=== PATIENT | male | born 1945 | race Caucasian/White ===

== ENCOUNTER → 2018-10-22 | Outpatient (CLI) | payer OTHER | LOC: CAT 12:57 | DX: Z13.6 Encounter for screening for cardiovascular disorders (principal); E78.00 Pure hypercholesterolemia, unspecified; I25.10 Atherosclerotic heart disease of native coronary artery without angina pectoris ==

== ENCOUNTER 2018-11-08 06:52 | Inpatient (IN) | payer OTHER ==
[~2018-11-08] VITALS: Ht 172.7 cm; Wt 113.4 kg
[2018-11-08 07:40] VITALS: BP 130/91
--- NOTE | 2018-11-08 08:49 | NUR ---
PT HAVING LONG PAUSES ON TELEMETRY. EKG COMPLETED. MD GAYLE AND MD CHO BOTH AWARE. PT DENIES COMPLAINTS, RECOVERING EXPECTED FROM SEDATION. UPDATED ON POC, WILL CONTINUE TO MONITOR.
[2018-11-08] MEDS ORDERED: LIPITOR10 MG PO (09:02)
[2018-11-08] MEDS ORDERED: EDARBYCLOR 40-1 EAC1 PO (09:03)
[2018-11-08] MEDS ORDERED: CHLORTHALIDONE25 MG PO (09:04)
[2018-11-08] MEDS ORDERED: SYNTHROID175 MCG PO (09:04)
[2018-11-08] MEDS ORDERED: ZETIA10 MG PO (09:04)
[2018-11-08] MEDS ORDERED: METFORMIN HCL500 MG PO (09:05)
[2018-11-08] MEDS ORDERED: ACIPHEX 20 MG T20 MG PO (09:06)
[2018-11-08] MEDS ORDERED: LOVAZA1000 MG PO (09:06)
[2018-11-08] MEDS ORDERED: XARELTO20 MG PO (09:07)
[2018-11-08] MEDS ORDERED: MICARDIS 20MG T20 M1 PO (09:07)
[2018-11-08] MEDS ORDERED: FLOMAX0.4 MG PO (09:07)
--- NOTE | 2018-11-08 09:07 | TEE ---
[facility] [address] [place] [address] TRANSESOPHAGEAL ECHOCARDIOGRAM Name: CRISTEL MAYNARD Cam Room [facility] [id number] Admission: 11/08/18 Attend Phys: Zane Cavazos, Discharge: Date of : 47 Report #: [id number] THIS REPORT FOR: //name// APPROVED REPORT Study performed: 11/08/2018 08:00:18 EXAM: Transesophageal Echocardiogram with Doppler and cardioversion Patient Location: Out-Patient Room #: 9 Status: routine BSA: 2.22 HR: 76 bpm BP: 130/91 mmHg Rhythm: Atrial Fibrillation Other Information Study Quality: Good Indications Atrial Fibrillation Echo Enhancing Agent Indication: Rule out Shunt Agent(s) / Amount(s) Used: Agitated Saline 10 cc Procedure After obtaining informed consent, patient underwent transesophageal echo in the [employer] [facility] [employer]. Type of Sedation : Conscious Sedation Sedation was administered by Nurse. Sedation was achieved intravenously with: Versed (4 mg) Fentanyl (100 mcg) Transesophageal probe was inserted and advanced into esophagus without difficulty by Zane Cavazos MD. Echo enhancement indication: R/O Septal defect. Echo enhancement agent administered: Agitated Saline The JOSEPH was performed without complications. Synchronized Cardioversion acheived with 100 Joules after 1 attempt(s). Rhythm following Synchronized Cardioversion: Sinus Bradycardia Throughout the procedure, the blood pressure, pulse oximetry, cardiac rhythm, and rate were monitored. The patient tolerated the procedure without adverse effects. Recovery [facility] [address] [place] [address] TRANSESOPHAGEAL ECHOCARDIOGRAM Name: CRISTEL MAYNARD Room #[facility]#: [id number] Admission: 11/08/18 Attend Phys: Zane Cavazos, Discharge: Date of : 47 Report #: [id number] from conscious sedation was uneventful and vital signs were stable. Left Ventricle The left ventricle is normal size. Mild concentric left ventricular hypertrophy. The left ventricular systolic function is normal. The left ventricular ejection fraction is within the normal range. LVEF is 50-55%. Right Ventricle The right ventricle is normal size. The right ventricular systolic function is normal. Atria Left atrium is dilated. No thrombus is visualized in the left atrium or appendage. No shunting by contrast bubble injection Right atrium is dilated. Aortic Valve The aortic valve is normal in structure. No aortic regurgitation is present. There is no aortic valvular stenosis. Mitral Valve The mitral valve is normal in structure. Mild mitral regurgitation. No evidence of mitral valve stenosis. Tricuspid Valve The tricuspid valve is normal in structure. There is no tricuspid valve regurgitation noted. Pulmonic Valve The pulmonary valve is normal in structure. There is no pulmonic valvular regurgitation. Great Vessels The aortic root is normal in size. IVC is normal in size and collapses >50% with inspiration. Pericardium There is no pericardial effusion. <Conclusion> The left ventricular systolic function is normal. EF55% Both atria are dilated. No thrombus in the left atrium or appendage. No shunting by contrast bubble injection [facility] [address] [place] [address] TRANSESOPHAGEAL ECHOCARDIOGRAM Name: CRISTEL MAYNARD Cam Room #: [facility]#: [id number] Admission: 11/08/18 Attend Phys: Zane Cavazos, Discharge: Date of : 47 Report #: [id number] The aortic valve is normal in structure. No aortic regurgitation or stenosis. The mitral valve is normal in structure. Mild mitral regurgitation. There is no pericardial effusion. Incidental finding: The JOSEPH probe would not traverse past the midesophagus. Consider recurrent stricture Successful cardioversion of atrial fibrillation to sinus bradycardia following 1 biphasic 100 J synchronous shock <ELECTRONICALLY SIGNED> By: Zane Cavazos MD, [facility] 11/08/18906 6 6 Zane Cavazos MD, FAC /INF
[2018-11-08] MEDS ORDERED: VITAMIN D5000 UNI1 PO (09:08)
--- NOTE | 2018-11-08 09:26 | NUR ---
PT RESTING COMFORTABLY. AAOX4, SPEAKING IN COMPLETE SENTENCES, SKIN PWD, NAD NOTED. MANAGER DOCUMENT SHELBIE TO CONSULT PT. UPDATED ON POC, WILL CONTINUE TO MONITOR.
[2018-11-08 12:31] LABS: HEMATOCRIT 49.1 % (42.0-52.0); HEMOGLOBIN 16.6 gm/dL (14.0-18.0); MCH 29.9 pg (26.0-34.0); MCHC 33.8 g/dL (28.0-37.0); MCV 88.4 fL (80.0-100.0); RBC 5.56 mil/uL (4.50-6.00); RDW 14.5 % (10.5-14.5); WBC 5.5 thou/uL (4.0-11.0)
[2018-11-08 12:47] LABS: ALBUMIN 3.7 g/dL (3.4-5.0); CALCIUM 10.4 mg/dL (8.5-10.1); TOTAL BILIRUBIN 0.9 mg/dL (<0.1-1.0); TOTAL PROTEIN 7.1 g/dL (6.4-8.2)
[2018-11-08 13:45] LABS: POTASSIUM 4.1 mmol/L (3.5-5.1)
[2018-11-08 16:30] VITALS: BP 140/103
--- NOTE | 2018-11-08 18:29 | NUR ---
PT ARRIVED TO UNIT FROM LOANS OFFICER APPROX 1500. ALERT AND ORIENTED, STEADY GATE, VSS, NAD NOTED. PT UP AD ANABELLE. PT STATES THAT HE WILL NOT TAKE ANY MEDICATIONS GIVEN TO HIM AND THAT HIS DOCTORS RE AWARE. I ALSO RECIEVED THIS MESSAGE IN REPORT FROM THE LOANS OFFICER. AT BEDSIDE WITH PT. NO NEW CONCERNS AT THIS TIME. WILL BEGIN ADMISSION PROCESS. WILL CONTINUE TO MONITOR.
[2018-11-08 20:15] VITALS: BP 136/100
[2018-11-09 00:30] VITALS: BP 106/68
[2018-11-09 04:45] VITALS: BP 118/81
--- NOTE | 2018-11-09 04:59 | NUR ---
RECEIVED PT'S CARE AT 1930; PT. AOX4; SITTING ON THE BED SIDE; DURING SHIFT CHANGE EXPLAINED WILL NOT TAKE MEDICATION FROM HOSPITAL, BUT FROM HOME; EDUCATED ABOUT NEEDS TO BE AWARE; MORNING NURSE & PT. CONFIRMED DR. ARRIAGAD & OK WITH IT; EDUCATED MEDICATION WILL HAVE TO BE SEND TO PHARMACY FOR VERIFICATION; ST. UNDERSTANDING; ST. WILL BRING MEDICATION LATER; DURING ASSESSMENT PT. PROVIDE MEDICATIONS WITH NAME & MG WELL SCHEDULE; MEDICATION SENT TO PHARMACY FOR VERIFICATION; CHECK EMAR; PT. ABLE TO REST THROUGH THE NIGHT WITH EYES CLOSED; HR BETWEEN 30-60s AT REST; NO C/O SOB; NO HEADACHE; EDUCATED ABOUT CALLING IF FEELING DIZZINESS; ST. UNDERSTANDING; ASSESSMENT CHARGED FOLLOWING POC; WILL PASS ON REPORT.
[2018-11-09 07:28] VITALS: BP 129/86
--- NOTE | 2018-11-09 11:16 | NUR ---
ASSUMED CARE OF PATIENT AT 0700. PATIENT HAS BILATERAL GROIN SITES WHICH WERE BOTH COVERED WITH GAUZE AND TEGADERM. BOTH AREAS WERE FREE OF BLOOD, HEMATOMA OR EDEMA. PATIENT DENIES ANY TENDERNESS. PATIENT DENIES ANY CHEST PAIN. PATIENT SEEN AND DISCHARGED BY CARDIOLOGY. NEW SCRIPTS, RX INFO SHEETS AND POST ABLATION PROCEDURES GIVEN TO PATIENT. TELE AND IV REMOVED. PATIENT STATES THAT HE FEELS BETTER THAN HE DID WHEN HE ARRIVED AND IS REASSURED BY THE FACT THAT HIS HEART RHYTHM HAS SLOWED BACK TO HIS "NORMAL" WHICH IS IN THE 60'S. HE WAS DRIVEN HOME BY HIS AND DENIES ANY CONCERNS.
--- NOTE | 2018-11-09 11:45 | EKG ---
[address] [place] [address] ELECTROCARDIOGRAM REPORT Name: CRISTEL MAYNARD Room #: 203-[facility]#: [id number] Admission: 11/08/18 Attend Phys: Zane Cavazos MD, Discharge: Date of : 47 Report #: [id number] THIS REPORT FOR: //name// [facility] Test Date: 2018-11-08 Test Time: 08:41:26 Pat Name: CRISTEL MAYNARD Department: Room: [facility] Gender: M Alarm Signaler: Estefanía KINGSLEY : 1945 Requested By: Zane Cavazos Order Number: [id number] MD: Zane Cavazos Measurements Intervals [place] Rate: 59 P: MT: QRS: -43 QRSD: 103 T: 17 QT: 402 QTc: 399 Interpretive Statements Severe sinus bradycardia with atrial premature complexes Left anterior fascicular block Abnormal R-wave progression, late transition Compared to ECG 02/17/2007 07:59:41 Atrial premature complexes are present Heart rate has slowed Electronically Signed On 11-09-2018 11:44:50 CDT by Zane Cavazos [email or web address] <ELECTRONICALLY SIGNED> By: Zane Cavazos MD, [facility] 11/09/18 1144 0841 0841 Zane Cavazos MD, [facility] /EPI
[2018-11-09 11:52] VITALS: BP 123/102
--- NOTE | 2018-11-09 11:52 | EKG ---
[address] [place] [address] ELECTROCARDIOGRAM REPORT Name: CRISTEL MAYNARD Room #: 203-[facility]#: [id number] Admission: 11/08/18 Attend Phys: Zane Cavazos MD, Discharge: Date of : 47 Report #: [id number] THIS REPORT FOR: //name// [facility] Test Date: 2018-11-08 Test Time: 13:50:18 Pat Name: CRISTEL MAYNARD Department: Room: [facility] Gender: M Big Data Lead: MELANIA : 1945 Requested By: Yojana Evans Order Number: [id number] MD: Zane Cavazos Measurements Intervals [place] Rate: 96 P: DC: QRS: -43 QRSD: 101 T: 30 QT: 423 QTc: 535 Interpretive Statements Sinus rhythm with frequent and consecutive atrial premature complexes Left anterior fascicular block Poor R wave progression Prolonged QT interval Compared to ECG 02/17/2007 07:59:41 Heart rate has increased Electronically Signed On 11-09-2018 11:52:04 CDT by Zane Cavazos [email or web address] <ELECTRONICALLY SIGNED> By: Zane Cavazos MD, [facility] 11/09/18 1152 1350 1350 Zane Cavazos MD, [facility] /EPI
--- NOTE | 2018-11-09 15:08 | NUR ---
ASSUMED CARE OF PATIENT AT 0700. ASSESSMENTS COMPLETED. PATIENT REQUESTED TO USE HOME MEDS FOR AM MEDS, AFRAID OF BEING CHARGED MANDEL TO PAY FOR THEM. PATIENT AGREED TO USE HOSPITAL MEDS AFTER STATUS CHANGED TO INPATIENT MID MORNING. PATIENT DENIES ANY FEELINGS OF DIZZY OR LIGHTHEADEDNESS. HEART RATE RANGING FROM 30-100. PATIENT'S IS AT THE BEDSIDE. PATIENT UNDERSTANDS AND AGREES TO STAY IN THE HOSPITAL OVER THE WEEKEND FOR POSSIBLE PACEMAKER/DEFIBRILLATOR PLACEMENT SUNDAY.
[2018-11-09 15:59] VITALS: BP 116/80
[2018-11-09 19:45] VITALS: BP 121/98
--- NOTE | 2018-11-10 04:38 | NUR ---
RECEIVED PT'S CARE AT 1900; PT. ON BED; AOX4; NO HS MEDICATION SCHEDULED; PT. REQUESTED O2 DURING THE NIGHT DUE TO POSSIBLE KAYDEN & ST. "I WANT TO CHECK IF THE PAUSES [HR] DECREASES WITH IT [O2]"; ST. WILL TAKE MEDICATION FROM HOSPITAL; ON 11/09/18 PT. REFUSES TO TAKE MEDICATION PROVIDED BY HOSPITAL; REQUESTED TO TAKE HOME MEDICATIONS; EMAR NOT UPDATE; PHARMACYST NOTIFIED; WILL PASS ON REPORT; PT. ABLE TO REST THROUGH THE NIGHT WITH EYES CLOSED; NO C/O HEADACHES OR SOB; ASSESSMENT CHARGED; FOLLOWING POC; MONITORING; WILL PASS ON REPORT;
[2018-11-10 04:45] VITALS: BP 123/82
[2018-11-10 05:20] LABS: CALCIUM 10.7 mg/dL (8.5-10.1); CREATININE 1.4 mg/dL (0.7-1.3); POTASSIUM 3.4 mmol/L (3.5-5.1)
[2018-11-10 07:38] VITALS: BP 119/92
--- NOTE | 2018-11-10 12:29 | EKG ---
[address] [address] ELECTROCARDIOGRAM REPORT Name: MAYNARDCRISTEL BERNARDO Room #: 203-[facility]#: [id number] Admission: 11/08/18 Attend Phys: Zane Cavazos MD, Discharge: Date of : 47 Report #: [id number] THIS REPORT FOR: //name// [facility] Test Date: 2018-11-10 Test Time: 08:15:38 Pat Name: CRISTEL MAYNARD Department: Room: 203 Gender: M Life [employer]: Karen GRANT : 1945 Requested By: Zane Cavazos Order Number: [id number] MD: Zane Cavazos Measurements Intervals [place] Rate: 78 P: -4 AK: 338 QRS: -36 QRSD: 105 T: 4 QT: 385 QTc: 439 Interpretive Statements Sinus arrhythmia Prolonged AK interval Left axis deviation Compared to ECG 11/08/2018 13:50:18 Atrial premature complex(es) no longer present Electronically Signed On 11-10-2018 12:29:26 CDT by Zane Cavazos [email or web address] <ELECTRONICALLY SIGNED> By: Zane Cavazos MD, [facility] 11/10/18 1229 0815 Zane Cavazos MD, [facility] /EPI
[2018-11-10 12:31] VITALS: BP 133/89
[2018-11-10 15:21] VITALS: BP 115/69
--- NOTE | 2018-11-10 18:34 | NUR ---
UP AD ANABELLE IN ROOM. PLEASATN. BAUTISTA. PREPARED TO HAVE PACEMAKER PLACED TOMORROW. NO QUESTIONS AT THIS TIME. WILL CONT WITH PLAN OF CARE.
[2018-11-10 19:28] VITALS: BP 114/89
[2018-11-11] VITALS (11 sets, daily range): BP systolic 92–129; BP diastolic 38–99
[2018-11-11 02:05] LABS: GLYCOHEMOGLOBIN (HGB A1C) 6.6 % (4.8-5.6)
--- NOTE | 2018-11-11 04:32 | NUR ---
RECEIVED PT'S CARE ARE 1900; PT. AOX4; SITTING ON BED; SPOUSE AT THE BED SIDE; DURING ASSESSMENT NO C/O PAIN; EDUCATED ABOUT GOALS THROUGH THE NIGHT; REQUESTED 02 DURING NIGHT; DR. HERCULES NOTIFIED; ORDERS RECEIVED; EDUCATED ABOUT PRE-PEP FOR PROCEDURE; ST. UNDERSTANDING; CLEANING PERFORMED WITH CHLOROXIDINE SOAP; AROUND 2200 DR. HERCULES ON THE FLOOR; REPORT GIVEN; ORDERS RECEIVED; PT. ABLE TO RES THROUGH THE NIGHT WITH EYES CLOSED; NO C/O HEADACHES OR SOB; HEART MONITOR SHOWING SB ON THE 30s & PAUSES FROM TIME TO TIMR; PHYSICIAN AWARE; ASSESSMENT CHARGED; FOLLOWING POC; MONITORING; WILL PASS ON REPORT.
[2018-11-11 05:46] LABS: ABSOLUTE NEUTROPHILS 3.5 thou/uL (1.4-8.2); BASOPHILS 0.7 % (0.0-2.0); EOSINOPHILS 6.6 % (0.0-3.0); HEMATOCRIT 50.2 % (42.0-52.0); HEMOGLOBIN 16.9 gm/dL (14.0-18.0); LYMPHOCYTES 25.7 % (24.0-44.0); MCH 29.8 pg (26.0-34.0); MCHC 33.7 g/dL (28.0-37.0); MCV 88.5 fL (80.0-100.0); PLATELET COUNT 181 thou/uL (150-400); RBC 5.68 mil/uL (4.50-6.00); RDW 14.4 % (10.5-14.5); WBC 5.9 thou/uL (4.0-11.0)
[2018-11-11 06:00] LABS: ALBUMIN 3.9 g/dL (3.4-5.0); CALCIUM 10.8 mg/dL (8.5-10.1); CREATININE 1.2 mg/dL (0.7-1.3); POTASSIUM 3.5 mmol/L (3.5-5.1); TOTAL BILIRUBIN 1.3 mg/dL (<0.1-1.0); TOTAL PROTEIN 7.7 g/dL (6.4-8.2)
--- NOTE | 2018-11-11 16:29 | NUR ---
ASSUMED PT CARE AT APPROXIMATELY 0700. PT A&O X4. ASSESSMENT CHARTED. FALL PRECAUTIONS IN PLACE. PT DENIES HAVING CHEST PAIN. PT DENIES HAVING SOB. PT DENIES HAVING ACUTE PAIN. PT POST-PROCEDURE PACEMAKER. PT BEDREST. PT'S POST-PROCEDURE VS COMPLETE. VS STABLE. PT'S IMMOBILIZER IN PLACE. EDUCATED PT AND SPOUSE OF POC AND POST-PROCEDURE ORDERS. PT AND SPOUSE STATED UNDERSTANDING AND DENIED HAVING FURTHER QUESTIONS. PT SAT AT A 45 DEGREE ANGLE FOR 6 HRS PER ORDER. PT COMFORTABLE IN BED.
[2018-11-12 00:30] VITALS: BP 128/83
[2018-11-12 05:00] VITALS: BP 121/81
--- NOTE | 2018-11-12 05:15 | NUR ---
ASSUMED PT CARE AT 1900. PT VSS AND ZERO C/O PAIN. AT BEDSIDE. INCISION SITE IS C/D/I AND OPEN TO ROOM AIR. AT BEDTIME PT REQUESTED 2L TO SLEEP. MAINTAINED BEDREST AND WILL CONTINUE TO MONITOR. PT IS PROGRESSING TOWARD DISCHARGE ACCORDING TO POC.
[2018-11-12 08:00] VITALS: BP 135/85
[2018-11-12] MEDS ORDERED: FLECAINIDE ACET50 M1 PO (08:01)
[2018-11-12] MEDS ORDERED: TOPROL XL25 MG PO (08:01)
[2018-11-12 08:26] VITALS: BP 138/110
[2018-11-12 09:24] VITALS: BP 121/86
[2018-11-12 09:46] VITALS: BP 121/86
--- NOTE | 2018-11-12 10:40 | NUR ---
ASSUMMED PT CARE AT APPROXIMATELY O700. PT A&O X4. ASSESSMENT CHARTED. FALL PRECAUTIONS IN PLACE. PT'S VITAL SIGNS STABLE. PT DENIED HAVING CHEST PAIN. PT DENIED HAVING SOB. PT DENIED HAVING ACUTE PAIN. PT RECEIVED X-RAY THIS MORNING. PT RECEIVED A VISIT FROM THE PACEMAKER REP. PT DISCHARGING HOME WITH SPOUSE. SPOUSE DRIVING HOME. PT RECEIVED DISCHARGE EDUCATION AND INSTRUCTIONS. PT STATED UNDERSTANDING AND DENIED HAVING FURTHER QUESTIONS. PT STABLE WHEN AMBULATING. PT'S L CHEST PACEMAKER SITE C/D/I AND WELL APPROXIMATED. IV DC. TELE DC. PT RECEIVED HOME MEDICATIONS THAT HE BROUGHT TO THE HOSPITAL. PT LEFT UNIT WITH HOSPITAL TRANSPORT AT APPROXIMATELY 1030.
--- NOTE | 2018-11-15 14:56 | P ---
[facility] [place] [address] PROCEDURE REPORT Name: CRISTEL MAYNARD Room #: 203-[facility]..#: [id number] Admission: 11/10/18 Attend Phys: Zane Cavazos MD, Discharge: 11/12/18 Date of : 47 Report #: [id number] THIS REPORT FOR: //name// CC: Zane Landa PACEMAKER IMPLANTATION PREOPERATIVE DIAGNOSES: 1. Sick sinus syndrome. 2. Atrial fibrillation. HISTORY: The patient is a 73-year-old male, recently diagnosed with atrial fibrillation. He had a normal stress test and echocardiogram. He underwent JOSEPH-guided cardioversion, which was successful with taoism of sinus rhythm, but he was having frequent episodes of sinus arrest. The patient is here for dual chamber pacemaker implantation. ANESTHESIA: The patient underwent MAC anesthesia with no anesthesia-related complications. DESCRIPTION OF PROCEDURE: The patient underwent informed consent. We discussed the details of the procedure including the risk, which include, but not limited to bleeding, infection, vascular damage, cardiac perforation, and pneumothorax. He understood these risks and is willing to proceed. The patient was brought to the EP laboratory in a fasting and unsedated state and prepped and draped in a sterile fashion. The patient underwent venography showing patency of the left axillary vein and he received IV vancomycin for antibiotic prophylaxis. He was prepped and draped in a sterile fashion. I injected lidocaine at the incision site. Incision was made, a pocket was created over the prepectoral fascia and access was obtained twice to left axillary vein using the extrathoracic approach with sheaths positioned using the modified Seldinger technique. Next, under fluoroscopy, leads were placed in the right ventricular apical septum and another lead was placed in the right atrial appendage. Both leads had satisfactory atrial and ventricular pacing and sensing thresholds. The leads were sutured to the prepectoral fascia using Ethibond suture. The pocket was irrigated with vancomycin. The pacemaker was connected to the leads, tested and found to be functioning normally. The pocket was then closed in 2 layers using 2-0 for the deep layer, 3-0 for the mid layer and surgical glue was placed to the outer skin layer. The patient awoke neurologically and hemodynamically intact. No complications and no significant bleeding. The implanted pacemaker was a Medtronic model #W3DR01, serial #[id number]. This is an MRI compatible pacemaker. The atrial lead was a Medtronic model #5076, [facility] [address] [place] [address] PROCEDURE REPORT Name: CRISTEL MAYNARD Room #: 203-P [facility]#: [id number] Admission: 11/10/18 Attend Phys: Zane Cavazos MD, Discharge: 11/12/18 Date of : 47 Report #: [id number] serial #[id number] with a P-wave of 3.5 millivolts, pacing impedance of 540 ohms and the pacing threshold 0.5 volts at 0.4 milliseconds. The right ventricular lead was a Keektronic model #5076, 58 cm, serial #[id number]. This lead demonstrated R-wave of 6.5 millivolts, pacing impedance of 703 ohms and the pacing threshold 0.5 volts at 0.4 milliseconds. The device was programmed to the AAIR/DDDR 60 to 130 mode. CONCLUSIONS: 1. Successful dual-chamber pacemaker implantation. 2. Satisfactory atrial and ventricular pacing and sensing thresholds. <ELECTRONICALLY SIGNED> By: Ham Ruiz MD 11/15/18 1456 0910 2131 Ham Ruiz MD /nt
== END 2018-11-12 10:49 | disposition home or self-care (01) | DRG 244 ==
LOC: CATH 06:52 → 2N 15:20 → ENTRNSPT 11-12 10:29 → EDTRNSPTSTS 11-12 10:32 → 2N 11-12 10:49
PROVIDERS: Nurse Practitioner; Nurse Practitioner Adult Health; ADMIT Internal Medicine
PROC: B24BZZ4 Ultrasonography of Heart with Aorta, Transesophageal (ICD-10-PCS; principal; 2018-11-08)
PROC: 5A2204Z Restoration of Cardiac Rhythm, Single (ICD-10-PCS; 2018-11-08)
PROC: 0JH606Z Insertion of Pacemaker, Dual Chamber into Chest Subcutaneous Tissue and Fascia, Open Approach (ICD-10-PCS; 2018-11-11)
PROC: 02H63JZ Insertion of Pacemaker Lead into Right Atrium, Percutaneous Approach (ICD-10-PCS; 2018-11-11)
PROC: 02HK3JZ Insertion of Pacemaker Lead into Right Ventricle, Percutaneous Approach (ICD-10-PCS; 2018-11-11)
PROC: 4B02XSZ Measurement of Cardiac Pacemaker, External Approach (ICD-10-PCS; 2018-11-12)
DX: I49.5 Sick sinus syndrome (principal); I48.0 Paroxysmal atrial fibrillation; E78.00 Pure hypercholesterolemia, unspecified; E03.9 Hypothyroidism, unspecified; E78.5 Hyperlipidemia, unspecified; E66.9 Obesity, unspecified; I34.0 Nonrheumatic mitral (valve) insufficiency; I11.0 Hypertensive heart disease with heart failure; Z79.01 Long term (current) use of anticoagulants; Z91.048 Other nonmedicinal substance allergy status; Z79.899 Other long term (current) drug therapy; Z79.84 Long term (current) use of oral hypoglycemic drugs; Z68.38 Body mass index [BMI] 38.0-38.9, adult; Z83.3 Family history of diabetes mellitus; Z81.8 Family history of other mental and behavioral disorders; Z80.9 Family history of malignant neoplasm, unspecified; Z98.52 Vasectomy status
CPT/HCPCS: 10081; 62110; 62900; 70005

== ENCOUNTER → 2019-03-17 | Outpatient (CLI) | payer OTHER ==
[~2019-03-17] MED LIST: ACIPHEX 20 MG T20 MG PO; CHLORTHALIDONE25 MG PO; EDARBYCLOR 40-1 EAC1 PO; FLECAINIDE ACET50 M1 PO; FLOMAX0.4 MG PO; LIPITOR10 MG PO; LOVAZA1000 MG PO; METFORMIN HCL500 MG PO; MICARDIS 20MG T20 M1 PO; SYNTHROID175 MCG PO; TOPROL XL25 MG PO; VITAMIN D5000 UNI1 PO; XARELTO20 MG PO; ZETIA10 MG PO
== END ==
LOC: SJCVC 10:40
DX: R94.31 Abnormal electrocardiogram [ECG] [EKG] (principal); R93.1 Abnormal findings on diagnostic imaging of heart and coronary circulation; I48.91 Unspecified atrial fibrillation; I49.5 Sick sinus syndrome; I10 Essential (primary) hypertension; E78.00 Pure hypercholesterolemia, unspecified; D68.59 Other primary thrombophilia; K21.9 Gastro-esophageal reflux disease without esophagitis; E11.9 Type 2 diabetes mellitus without complications; E03.9 Hypothyroidism, unspecified; E78.5 Hyperlipidemia, unspecified; Z95.0 Presence of cardiac pacemaker

== ENCOUNTER → 2019-06-02 | Outpatient (CLI) | payer OTHER | LOC: SJCVCIMAG 08:18 | DX: Z45.018 Encounter for adjustment and management of other part of cardiac pacemaker (principal); I10 Essential (primary) hypertension; I49.5 Sick sinus syndrome; E11.9 Type 2 diabetes mellitus without complications; I48.0 Paroxysmal atrial fibrillation; E78.00 Pure hypercholesterolemia, unspecified; E03.9 Hypothyroidism, unspecified; E66.9 Obesity, unspecified; Z79.899 Other long term (current) drug therapy ==

== ENCOUNTER → 2019-12-19 | Outpatient (CLI) | payer OTHER | LOC: SJCVC 10:44 | PROVIDERS: ATTEND Internal Medicine Cardiovascular Disease | DX: I49.5 Sick sinus syndrome (principal); I48.0 Paroxysmal atrial fibrillation; R93.1 Abnormal findings on diagnostic imaging of heart and coronary circulation; I10 Essential (primary) hypertension; E78.00 Pure hypercholesterolemia, unspecified; R73.03 Prediabetes; Z95.0 Presence of cardiac pacemaker; Z79.899 Other long term (current) drug therapy ==

== ENCOUNTER 2020-05-23 07:21 | Emergency (ER) | payer OTHER ==
[~2020-05-23] VITALS: Ht 172.7 cm; Wt 110.2 kg
[2020-05-23] MEDS ORDERED: CRESTOR10 MG PO (07:52)
[2020-05-23 07:57] LABS: BASOPHILS 0.3 % (0.0-2.0); EOSINOPHILS 1.3 % (0.0-3.0); HEMATOCRIT 45.5 % (42.0-52.0); HEMOGLOBIN 15.2 gm/dL (14.0-18.0); LYMPHOCYTES 10.8 % (24.0-44.0); MCH 29.7 pg (26.0-34.0); MCHC 33.4 g/dL (28.0-37.0); MCV 89.1 fL (80.0-100.0); MONOCYTES 8.7 % (1.0-8.0); PLATELET COUNT 174 thou/uL (150-400); POLYS 78.9 % (36.0-66.0); RDW 14.1 % (10.5-14.5); WBC 10.2 thou/uL (4.0-11.0)
[2020-05-23 08:01] LABS: CALCIUM 10.2 mg/dL (8.5-10.1); CREATININE 1.4 mg/dL (0.7-1.3); POTASSIUM 4.3 mmol/L (3.5-5.1)
[2020-05-23 08:05] LABS: URINE BILIRUBIN NEGATIVE (Negative); URINE BLOOD TRACE (Negative); URINE CLARITY CLEAR; URINE COLOR YELLOW; URINE GLUCOSE-RANDOM* 3+ (Negative); URINE KETONES NEGATIVE (Negative); URINE LEUKOCYTES-REFLEX NEGATIVE (Negative); URINE NITRITE-REFLEX NEGATIVE (Negative); URINE PROTEIN (DIPSTICK) NEGATIVE (Negative); URINE SPECIFIC GRAVITY 1.015 (1.005-1.035); URINE UROBILINOGEN 0.2 E.U./dl (0.2-1.0)
[2020-05-23 08:07] LABS: ALBUMIN 3.4 g/dL (3.4-5.0); TOTAL BILIRUBIN 1.3 mg/dL (0.2-1.0); TOTAL PROTEIN 7.3 g/dL (6.4-8.2)
[2020-05-23 10:37] VITALS: BP 93/48
== END 2020-05-23 10:38 | disposition home or self-care (01) ==
LOC: ER 07:21
PROVIDERS: Emergency Medicine
DX: K57.32 Diverticulitis of large intestine without perforation or abscess without bleeding (principal); I10 Essential (primary) hypertension; E11.9 Type 2 diabetes mellitus without complications; E78.5 Hyperlipidemia, unspecified; E03.9 Hypothyroidism, unspecified; Z79.899 Other long term (current) drug therapy

== ENCOUNTER → 2020-08-24 | Outpatient (CLI) | payer OTHER ==
[~2020-08-24] MED LIST changes: +CRESTOR10 MG PO
== END ==
LOC: SJCVCIMAG 12:49
PROVIDERS: ATTEND Internal Medicine Cardiovascular Disease
DX: I11.9 Hypertensive heart disease without heart failure (principal); I77.819 Aortic ectasia, unspecified site; R93.1 Abnormal findings on diagnostic imaging of heart and coronary circulation; E78.00 Pure hypercholesterolemia, unspecified; I49.5 Sick sinus syndrome; I45.10 Unspecified right bundle-branch block; I48.0 Paroxysmal atrial fibrillation; E03.9 Hypothyroidism, unspecified; E78.5 Hyperlipidemia, unspecified; E66.9 Obesity, unspecified; E11.9 Type 2 diabetes mellitus without complications; Z95.0 Presence of cardiac pacemaker; Z79.82 Long term (current) use of aspirin; Z79.84 Long term (current) use of oral hypoglycemic drugs; Z79.899 Other long term (current) drug therapy

== ENCOUNTER → 2020-12-17 | Outpatient (CLI) | payer OTHER | LOC: SJCVCIMAG 06:47 | PROVIDERS: ATTEND Internal Medicine Cardiovascular Disease | DX: I25.10 Atherosclerotic heart disease of native coronary artery without angina pectoris (principal); E78.5 Hyperlipidemia, unspecified ==